=== PATIENT | male | born 1985 | race Caucasian/White ===

== ENCOUNTER 2021-03-06 09:58 | Day surgery (SDC) | payer OTHER, SELFPAY ==
[~2021-03-06] VITALS: Ht 177.8 cm; Wt 170.1 kg
[2021-03-06] MEDS ORDERED: CEFAZOLIN SOD 1 GM in D5W 50 ML IV ONE (10:30)
[2021-03-06] MEDS ORDERED: MIDAZOLAM HCL 5 MG/5 ML VIAL IVP ONE (11:15)
[2021-03-06] MEDS ORDERED: DEXAMETHASONE SOD PHOSPHATE 4 MG/ML VIAL IVP ONE (11:15)
[2021-03-06] MEDS ORDERED: ROCURONIUM BROMIDE 10 MG/ML (ZEMURON) IV ONE (11:15)
[2021-03-06] MEDS ORDERED: NS 100 ML BAG IV ONE (11:15)
[2021-03-06] MEDS ORDERED: BUPIVACAINE /PF 0.25% 30 ML VIAL INJ ONE (11:15)
[2021-03-06] MEDS ORDERED: LABETALOL 100 MG/ 20ML VIAL IVP ONE (11:15)
[2021-03-06] MEDS ORDERED: fentaNYL CITRATE 250 MCG/5 ML AMP IV ONE (11:15)
[2021-03-06] MEDS ORDERED: NS IRRIG SOLN 1000 ML IR ONE (11:15)
[2021-03-06] MEDS ORDERED: ISOFLURANE 15 MIN GAS INH ONE (11:15)
[2021-03-06] MEDS ORDERED: SUGAMMADEX SODIUM 200 MG/2 ML VIAL IV ONE (11:15)
[2021-03-06] MEDS ORDERED: PROPOFOL 200MG/ 20ML VIAL (DIPRIVAN) IV ONE (11:15)
[2021-03-06] MEDS ORDERED: ONDANSETRON HCL 4 MG/2 ML VIAL IVP ONE (11:15)
[2021-03-06] MEDS ORDERED: LR 1,000 ML IV.SOLN IV ONE (11:15)
[2021-03-06] MEDS ORDERED: CEFAZOLIN 2 GM IVPB PREMIX 50 ML IV ONE (11:15)
[2021-03-06] MEDS ORDERED: LIDOCAINE 2%, 20 ML MDV INJ ONE (11:15)
[2021-03-06] MEDS ORDERED: POLYMYXIN 500,000/BACIT.10,000 UNITS in NS IRR 1 L IR ONE (12:02)
[2021-03-06] MEDS ORDERED: BUPIVACAINE LIPOSOME/PF 266 MG/20 ML VIAL INFIL ONE (12:11)
[2021-03-06] MEDS ORDERED: MIDAZOLAM HCL 2 MG/2 ML VIAL (VERSED) IVP PRN (12:15)
[2021-03-06] MEDS ORDERED: MEPERIDINE HCL/PF 25 MG/ML DISP.SYRIN IVP PRN (12:15)
[2021-03-06] MEDS ORDERED: METOCLOPRAMIDE HCL 10 MG/2 ML VIAL IVP PRN (12:15)
[2021-03-06] MEDS ORDERED: LR 1,000 ML IV SCH (12:15)
[2021-03-06] MEDS ORDERED: ONDANSETRON HCL 4 MG/2 ML VIAL IVP PRN ×2 (12:15→15:15)
[2021-03-06] MEDS ORDERED: HYDROmorphone 1 INJ. 1 MG/ML CARTRIDGE IVP PRN ×2 (12:15)
[2021-03-06] MEDS ORDERED: ALBUTEROL SULFATE 0.083% 2.5 MG/3 ML VIAL.NEB INH ONE (12:15)
[2021-03-06] MEDS ORDERED: ACETAMINOPHEN 325 MG TABLET PO PRN (15:00)
[2021-03-06 15:20] VITALS: BP_SYST 143
[2021-03-06] MEDS ORDERED: HYDROcodone/ACETAMIN 5-325 MG TAB (NORCO/ VICODIN) PO PRN ×2 (15:30)
[2021-03-06] MEDS ORDERED: DOXY100T2 PO (15:47)
[2021-03-06] MEDS ORDERED: NEU300 PO (15:47)
[2021-03-06] MEDS ORDERED: METH-800 PO (15:47)
[2021-03-06] MEDS ORDERED: NAPR-690 PO (15:47)
[2021-03-06] MEDS ORDERED: ERGO2000 (15:47)
[2021-03-06] MEDS ORDERED: ALBU2.5V7 INH (15:47)
[2021-03-06] MEDS ORDERED: IPRA4AER INH (15:47)
[2021-03-06] MEDS ORDERED: FLUT1BLS3 INH (15:47)
[2021-03-06] MEDS ORDERED: PERC10 PO (15:48)
[2021-03-06] MEDS: D5/0.45 NS 1,000 ML IV SCH (16:07)
[2021-03-06 16:08] VITALS: BP_SYST 129
[2021-03-06] MEDS: CEFAZOLIN 1 GM IVPB PREMIX 50 ML IV SCH (18:24)
[2021-03-06 20:00] VITALS: BP_SYST 131
[2021-03-06] MEDS: FAMOTIDINE PF 20 MG/2 ML VIAL IVP SCH (20:24)
[2021-03-06] MEDS: HYDROmorphone 1 INJ. 1 MG/ML CARTRIDGE IVP PRN (20:25)
[2021-03-06] MEDS ORDERED: IPRATROPIUM BROM 0.5 MG/2.5 ML VIAL.NEB (ATROVENT) INH PRN (20:30)
[2021-03-06] MEDS ORDERED: ALBUTEROL SULFATE 0.083% 2.5 MG/3 ML VIAL.NEB INH PRN (20:30)
[2021-03-06] MEDS: ALBUTEROL SULFATE 0.083% 2.5 MG/3 ML VIAL.NEB INH SCH (23:21)
[2021-03-06] MEDS: IPRATROPIUM BROM 0.5 MG/2.5 ML VIAL.NEB (ATROVENT) INH SCH (23:21)
[2021-03-06] MEDS: GABAPENTIN 300 MG CAPSULE PO SCH (23:31)
[2021-03-07] MEDS: HYDROmorphone 1 INJ. 1 MG/ML CARTRIDGE IVP PRN ×2 (00:54→04:56)
[2021-03-07] MEDS: D5/0.45 NS 1,000 ML IV SCH (01:02)
[2021-03-07 01:03] VITALS: BP_SYST 138
[2021-03-07] MEDS: CEFAZOLIN 1 GM IVPB PREMIX 50 ML IV SCH (01:03)
[2021-03-07] MEDS: ALBUTEROL SULFATE 0.083% 2.5 MG/3 ML VIAL.NEB INH SCH (03:00)
[2021-03-07] MEDS: IPRATROPIUM BROM 0.5 MG/2.5 ML VIAL.NEB (ATROVENT) INH SCH (03:00)
[2021-03-07] MEDS ORDERED: BUDESONIDE 0.5 MG/2 ML AMPUL.NEB INH SCH (07:00)
[2021-03-07 08:04] VITALS: BP_SYST 139
[2021-03-07] MEDS: GABAPENTIN 300 MG CAPSULE PO SCH (08:11)
[2021-03-07] MEDS: FAMOTIDINE PF 20 MG/2 ML VIAL IVP SCH (08:11)
[2021-03-07] MEDS ORDERED: FLUTICASONE/VILANTEROL 1 EACH BLST.W.DEV INH SCH (09:00)
[2021-03-07] MEDS ORDERED: ENOXAPARIN SODIUM 30 MG/0.3 ML SYRINGE SUBCUT SCH (09:00)
[2021-03-07 10:19] VITALS: BP_SYST 139
== END 2021-03-07 11:00 | disposition home or self-care (01) ==
LOC: SMU 09:58 → SDS 09:58 → SMU 16:01 → SDS 03-07 11:00
PROVIDERS: ATTEND Colon & Rectal Surgery
DX: K43.6 Other and unspecified ventral hernia with obstruction, without gangrene (principal); G47.33 Obstructive sleep apnea (adult) (pediatric); E66.01 Morbid (severe) obesity due to excess calories; J45.909 Unspecified asthma, uncomplicated; F17.210 Nicotine dependence, cigarettes, uncomplicated; Z20.828 Contact with and (suspected) exposure to other viral communicable diseases; Z79.899 Other long term (current) drug therapy
CPT/HCPCS: 49561; 49568; 64488; 88307; 94640; 94660; 94760; C1781; C9290; C9399; J0690 ×2; J1100; J1170 ×2; J1650; J2001; J2250; J2405; J2704; J3010; J3490 ×4; J7060; J7120; J7613; U0003; 88302